=== PATIENT | female | born 1945 | race Caucasian/White ===

== ENCOUNTER 2019-11-16 10:22 | Day surgery (SDC) | payer OTHER | END 2019-11-17 15:05 | disposition home or self-care (01) | LOC: OR 10:22 → 4S 16:28 | DX: M17.11 Unilateral primary osteoarthritis, right knee (principal); M25.561 Pain in right knee; E03.9 Hypothyroidism, unspecified; Z98.890 Other specified postprocedural states; Z79.899 Other long term (current) drug therapy; Z87.891 Personal history of nicotine dependence; Z79.82 Long term (current) use of aspirin; Z11.59 Encounter for screening for other viral diseases ==

== ENCOUNTER → 2021-05-14 | Outpatient (CLI) | payer OTHER ==
[~2021-05-14] MED LIST: ASA81BEC PO; ASPIR 8181 MG PO; CALCIUM 600 +1 EAC7 PO; FISH OIL 1,0001 EAC9 PO; GLUCOSAMINE &1 EACH PO; HYDROCODON-ACE1 EAC7 PO; LEVOTHYROXINE112 MCG PO; MELOXICAM15 MG PO; MS CONTIN15 MG PO; MULTI VITAMIN1 EACH PO; NEURONTIN 300M300 M2 PO; TYLENOL PM EX-1 EACH PO; VITAMIN D310 MC1 PO
[2021-05-14 13:10] LABS: HEMOGLOBIN 12.7 gm/dL (12.0-15.0); MCH 29.5 pg (26.0-34.0); MCHC 32.6 g/dL (28.0-37.0); MCV 90.7 fL (80.0-100.0); RBC 4.3 mil/uL (4.20-5.00); RDW 12.8 % (10.5-14.5); WBC 6.1 thou/uL (4.0-11.0)
[2021-05-14 13:10] LABS: URINE BILIRUBIN NEGATIVE (Negative); URINE BLOOD NEGATIVE (Negative); URINE CLARITY CLEAR; URINE COLOR YELLOW; URINE GLUCOSE-RANDOM* NEGATIVE (Negative); URINE KETONES NEGATIVE (Negative); URINE LEUKOCYTES-REFLEX NEGATIVE (Negative); URINE NITRITE-REFLEX NEGATIVE (Negative); URINE PROTEIN (DIPSTICK) NEGATIVE (Negative); URINE UROBILINOGEN 0.2 E.U./dl (0.2-1.0)
[2021-05-14 13:19] LABS: ALBUMIN 3.8 g/dL (3.4-5.0); CALCIUM 9.4 mg/dL (8.5-10.1); CREATININE 0.8 mg/dL (0.6-1.0); POTASSIUM 4.1 mmol/L (3.5-5.1)
[2021-05-14 13:24] LABS: INR 0.93; PROTIME 10.2 Seconds (10.5-12.1)
--- NOTE | 2021-05-15 08:08 | EKG ---
[place] [address] [facility] [place] [employer] [place] [address] ELECTROCARDIOGRAM REPORT Name: MARÍA CHAMORRO Cristobal Room #: [facility]#: [id number] Admission: 05/14/21 Attend Phys: Nick Lund Discharge: Date of : 49 Report #: [id number] [facility] Test Date: 2021-05-14 Test Time: 13:10:17 Pat Name: MARÍA CHAMORRO Department: Room: Gender: F Electronic Organ Technician: MAYA FRITZ : 1945 Requested By: Israel Verma Order Number: [id number] MD: Odell Hurtado Measurements Intervals [place] Rate: 79 P: 50 UT: 161 QRS: 22 QRSD: 84 T: 62 QT: 389 QTc: 447 Interpretive Statements Sinus rhythm No significant abnormality Compared to ECG 11/08/2019 10:25:08 No significant changes Electronically Signed On 05-15-2021 8:08:38 [employer]AL[employer]OL TECHNICIAN by Odell Hurtado [email or web address] <ELECTRONICALLY SIGNED> By: Odell Hurtado MD, [facility] 05/15/21 [id number] Odell Hurtado MD, FACC /EPI
== END ==
LOC: PAC 11:58
PROVIDERS: ATTEND Orthopaedic Surgery
DX: Z01.812 Encounter for preprocedural laboratory examination (principal); Z01.810 Encounter for preprocedural cardiovascular examination; M16.11 Unilateral primary osteoarthritis, right hip

== ENCOUNTER 2021-05-28 07:44 | Observation (INO) | payer OTHER ==
[~2021-05-28] VITALS: Ht 170.2 cm; Wt 97.1 kg
[2021-05-28 09:14] VITALS: BP 141/65
[2021-05-28 16:50] VITALS: BP 134/72
--- NOTE | 2021-05-28 17:06 | NUR ---
Per Rn Dr Verma wants patient to have HH care. met with patient. she resides in independent with spouse who has dementia. All needs on one level in home. She reports son is staying with spouse while she has sx. he may stay a few more days when she returns home to [facility]. Patient reports she has a walker at home. She questions if she can have a wider walker. Her walker feels tight when she uses. Discussed HH care. Patient reports she has not had HH in past. she believes her spouse did but that was long ago. No preference for HH agency and agreeable to use [facility] to meet with patient to discuss HH care. Verified address and PCP. Faxed clinical to [facility] HH care.
[2021-05-28 19:28] VITALS: BP 122/58
--- NOTE | 2021-05-29 06:33 | NUR ---
patient aox4 makes needs known.patient been using bedside commode putting weight as tolerated per ddr. order. pain controlled this shift. patient is continent this shift. fall precaution in place. patient in bed asleep at this time breathing regular and unlaboured.
[2021-05-29 08:30] VITALS: BP 110/45
[2021-05-29 11:22] VITALS: BP 110/45
--- NOTE | 2021-05-29 14:34 | NUR ---
Patient dc home with [facility] care no further needs.
== END 2021-05-29 13:55 | disposition home or self-care (01) ==
LOC: OR 07:44 → 4S 14:21 → OR 14:22 → 4S 14:22
PROVIDERS: ADMIT Orthopaedic Surgery; ATTEND Orthopaedic Surgery
DX: M16.11 Unilateral primary osteoarthritis, right hip (principal); Z20.822 Contact with and (suspected) exposure to COVID-19
CPT/HCPCS: 50010; 50101; 50382; 50414; 50855; 52258; 52304; 53078; 53367; 56524; 56528; 57093; 57095; 57103; 58637; 58959; 62110; 62900; 70005